=== PATIENT | female | born 1945 | race Caucasian/White ===

== ENCOUNTER 2018-12-15 17:08 | Emergency (ER) | payer MEDICARE ==
[~2018-12-15] VITALS: Ht 160 cm; Wt 90.7 kg
--- NOTE | 2018-12-15 17:26 | PHYS DOC ---
Past Medical History Attending Signature I have participated in the care of this patient and I have reviewed and agree with all pertinent clinical information above including history, exam, and recommendations. (TARSHA SANTACRUZ MD) Adult General Chief Complaint Chief Complaint: SEIZURE HPI HPI Patient is a 73 year old female that presents after she had a full body seizure that was witnessed that occurred for about 2 minutes at 444. The patient has a history of seizures and had her first seizure 5 years ago. The patient was on Lamictal but was taken off 6 months ago. The patient was initially postictal and combative afterwards. EMS stated that her blood sugar was 66 when they arrived. She was in the car when this happened. The only thing she had to eat today was an Indonesian muffin around 11:00. The patient will arrival to the ER has improved however she is still a and O 2. And she does not know what year it is. She denies any pain at this time states her pain is 0 out of 10 in severity. (TERESA LUNDY APRN) Review of Systems Review of Systems Constitutional: Denies fever or chills [] Eyes: Denies change in visual acuity, redness, or eye pain [] HENT: Denies nasal congestion or sore throat [] Respiratory: Denies cough or shortness of breath [] Cardiovascular: No additional information not addressed in HPI [] GI: Denies abdominal pain, nausea, vomiting, bloody stools or diarrhea [] : Denies dysuria or hematuria [] Musculoskeletal: Denies back pain or joint pain [] Integument: Denies rash or skin lesions [] Neurologic: Denies headache, focal weakness or sensory changes [] Endocrine: Denies polyuria or polydipsia [] Complete systems were reviewed and found to be within normal limits, except as documented in this note. (TERESA LUNDY APRN) Current Medications Current Medications Current Medications Medications (Trade) Dose Ordered Sig/Thony Start Time Stop Time Status Last Admin Dose Admin Lamotrigine (LaMICtal) 100 mg 1X STAT 12/15/18 17:43 12/15/18 18:11 DC 12/15/18 18:19 100 MG (TARSHA SANTACRUZ MD) Allergies Allergies Allergies Coded Allergies Type Severity Reaction Last Updated Verified No Known Drug Allergies 12/15/18 No (TARSHA SANTACRUZ MD) Physical Exam Physical Exam Constitutional: Well developed, well nourished, no acute distress, non-toxic appearance. [] HENT: Normocephalic, atraumatic, bilateral external ears normal, oropharynx moist, no oral exudates, nose normal. [] Eyes: PERRLA, EOMI, conjunctiva normal, no discharge. [] Neck: Normal range of motion, no tenderness, supple, no stridor. [] Cardiovascular:Heart rate regular rhythm, no murmur [] Lungs & Thorax: Bilateral breath sounds clear to auscultation [] Abdomen: Bowel sounds normal, soft, no tenderness, no masses, no pulsatile masses. [] Skin: Warm, dry, no erythema, no rash. [] Back: No tenderness, no CVA tenderness. [] Extremities: No tenderness, no cyanosis, no clubbing, ROM intact, no edema. [] Neurologic: Alert and oriented X 2, normal motor function, normal sensory function, no focal deficits noted. [] Psychologic: Affect normal, judgement normal, mood normal. [] (TERESA LUNDY APRN) Current Patient Data Vital Signs Vital Signs Date Time Temp Pulse Resp B/P (MAP) Pulse Ox O2 Delivery O2 Flow Rate FiO2 12/15/18 22:18 68 19 98 12/15/18 17:12 98.1 190/95 (126) Room Air 98.1 (TARSHA SANTACRUZ MD) Lab Values Laboratory Tests Test 12/15/18 17:22 White Blood Count 11.5 x10^3/uL (4.0-11.0) H Red Blood Count 4.96 x10^6/uL (3.50-5.40) Hemoglobin 15.1 g/dL (12.0-15.5) Hematocrit 45.2 % (36.0-47.0) Mean Corpuscular Volume 91 fL (79-100) Mean Corpuscular Hemoglobin 31 pg (25-35) Mean Corpuscular Hemoglobin Concent 34 g/dL (31-37) Red Cell Distribution Width 13.6 % (11.5-14.5) Platelet Count 395 x10^3/uL (140-400) Neutrophils (%) (Auto) 35 % (31-73) Lymphocytes (%) (Auto) 52 % (24-48) H Monocytes (%) (Auto) 8 % (0-9) Eosinophils (%) (Auto) 5 % (0-3) H Basophils (%) (Auto) 1 % (0-3) Neutrophils # (Auto) 4.0 x10^3/uL (1.8-7.7) Lymphocytes # (Auto) 5.9 x10^3/uL (1.0-4.8) H Monocytes # (Auto) 0.9 x10^3/uL (0.0-1.1) Eosinophils # (Auto) 0.6 x10^3/uL (0.0-0.7) Basophils # (Auto) 0.1 x10^3/uL (0.0-0.2) Prothrombin Time 13.2 SEC (11.7-14.0) Prothrombin Time INR 1.0 (0.8-1.1) Activated Partial Thromboplast Time 24 SEC (24-38) Sodium Level 146 mmol/L (136-145) H Potassium Level 3.4 mmol/L (3.5-5.1) L Chloride Level 106 mmol/L (98-107) Carbon Dioxide Level 21 mmol/L (21-32) Anion Gap 19 (6-14) H Blood Urea Nitrogen 27 mg/dL (7-20) H Creatinine 1.1 mg/dL (0.6-1.0) H Estimated GFR (Cockcroft-Gault) 48.7 BUN/Creatinine Ratio 25 (6-20) H Glucose Level 87 mg/dL (70-99) Lactic Acid Level 7.0 mmol/L (0.4-2.0) *H Calcium Level 9.1 mg/dL (8.5-10.1) Total Bilirubin 0.7 mg/dL (0.2-1.0) Aspartate Amino Transferase (AST) 21 U/L (15-37) Alanine Aminotransferase (ALT) 20 U/L (14-59) Alkaline Phosphatase 93 U/L (46-116) Total Protein 7.2 g/dL (6.4-8.2) Albumin 3.9 g/dL (3.4-5.0) Albumin/Globulin Ratio 1.2 (1.0-1.7) Laboratory Tests 12/15/18 17:22 Laboratory Tests 12/15/18 17:22 (TARSHA SANTACRUZ MD) Lab Values Laboratory Tests Test 12/15/18 17:22 White Blood Count 11.5 x10^3/uL (4.0-11.0) H Red Blood Count 4.96 x10^6/uL (3.50-5.40) Hemoglobin 15.1 g/dL (12.0-15.5) Hematocrit 45.2 % (36.0-47.0) Mean Corpuscular Volume 91 fL (79-100) Mean Corpuscular Hemoglobin 31 pg (25-35) Mean Corpuscular Hemoglobin Concent 34 g/dL (31-37) Red Cell Distribution Width 13.6 % (11.5-14.5) Platelet Count 395 x10^3/uL (140-400) Neutrophils (%) (Auto) 35 % (31-73) Lymphocytes (%) (Auto) 52 % (24-48) H Monocytes (%) (Auto) 8 % (0-9) Eosinophils (%) (Auto) 5 % (0-3) H Basophils (%) (Auto) 1 % (0-3) Neutrophils # (Auto) 4.0 x10^3/uL (1.8-7.7) Lymphocytes # (Auto) 5.9 x10^3/uL (1.0-4.8) H Monocytes # (Auto) 0.9 x10^3/uL (0.0-1.1) Eosinophils # (Auto) 0.6 x10^3/uL (0.0-0.7) Basophils # (Auto) 0.1 x10^3/uL (0.0-0.2) Prothrombin Time 13.2 SEC (11.7-14.0) Prothrombin Time INR 1.0 (0.8-1.1) Activated Partial Thromboplast Time 24 SEC (24-38) Sodium Level 146 mmol/L (136-145) H Potassium Level 3.4 mmol/L (3.5-5.1) L Chloride Level 106 mmol/L (98-107) Carbon Dioxide Level 21 mmol/L (21-32) Anion Gap 19 (6-14) H Blood Urea Nitrogen 27 mg/dL (7-20) H Creatinine 1.1 mg/dL (0.6-1.0) H Estimated GFR (Cockcroft-Gault) 48.7 BUN/Creatinine Ratio 25 (6-20) H Glucose Level 87 mg/dL (70-99) Lactic Acid Level 7.0 mmol/L (0.4-2.0) *H Calcium Level 9.1 mg/dL (8.5-10.1) Total Bilirubin 0.7 mg/dL (0.2-1.0) Aspartate Amino Transferase (AST) 21 U/L (15-37) Alanine Aminotransferase (ALT) 20 U/L (14-59) Alkaline Phosphatase 93 U/L (46-116) Total Protein 7.2 g/dL (6.4-8.2) Albumin 3.9 g/dL (3.4-5.0) Albumin/Globulin Ratio 1.2 (1.0-1.7) Laboratory Tests 12/15/18 17:22 Laboratory Tests 12/15/18 17:22 (TERESA LUNDY APRN) EKG EKG EKG interpreted by Dr. Esa eason with rate of 84, leftward axis, NO STEMI. (TERESA LUNDY APRN) Radiology/Procedures Radiology/Procedures [][facility] [address] [place] [address] IMAGING REPORT Signed PATIENT: STEPHENIE AGUILAR ACCOUNT: [id number] : 1945 LOCATION: ER AGE: 73 SEX: F EXAM STATUS: PRE ER ORD. PHYSICIAN: TERESA LUNDY APRN REASON: seizure, loc, ams PROCEDURE: CT HEAD WO CONTRAST EXAM: Head CT without contrast. HISTORY: Seizure. TECHNIQUE: Computed tomographic images of the head were obtained without contrast. *One or more of the following individualized dose reduction techniques were utilized for this examination: 1. Automated exposure control. 2. Adjustment of the mA and/or kV according to patient size. 3. Use of iterative reconstruction technique. COMPARISON: None. FINDINGS: There is no acute or subacute extra-axial or intraparenchymal hemorrhage. There is no mass effect or midline shift. There is no hydrocephalus. There are areas of decreased attenuation within the cerebral white matter, nonspecific and likely related to chronic small vessel disease. The visualized portions of the orbits, paranasal sinuses and mastoid air cells are unremarkable. No suspicious calvarial lesion is seen. IMPRESSION: No acute intracranial finding. Note is made that MRI is more sensitive for acute infarction. Electronically signed by: Derik Han MD (12/15/2018 5:59 PM) [facility] DICTATED and SIGNED BY: DERIK HAN MD DATE: 12/15/181758 (TREESA LUNDY APRN) Course & Med Decision Making Course & Med Decision Making Pertinent Labs and Imaging studies reviewed. (See chart for details) Will get labs, CT head and allow patient to return to baseline. Will also get EKG. Labs and imaging are unremarkable with exception of lactic acid of 7.0 which correlates with story of seizure. 1925: Check on patient and patient has improved slightly but is still having difficulty with date and is still having short term memory loss. 2158: Patient has continued to improve and knows the date will d/c home. (TERESA LUNDY APRN) Dragon Disclaimer Dragon Disclaimer This electronic medical record was generated, in whole or in part, using a voice recognition dictation system. (TERESA LUNDY APRN) Departure Departure Impression: Primary Impression: Seizure Disposition: HOME, SELF-CARE Condition: STABLE Patient Instructions: Seizure, Adult Additional Instructions: Thank you for visiting [facility]. We appreciate you trusting us with your care. If any additional problems come up don't hesitate to return to visit us. Please follow up with your primary care provider so they can plan additional care if needed and know about the problem that you had. If symptoms worsen come back to the Emergency Department. Any concerning symptoms that start such as chest pain, shortness of air, weakness or numbness on one side of the body, running high fevers or any other concerning symptoms return to the ER. Please return if you have any other issues. Please call your neurologist first thing Monday morning. Scripts Lamotrigine (LAMICTAL) 100 Mg Tablet 1 TAB PO BID for 30 Days, #60 TAB 0 Refills Prov: TERESA LUNDY APRN 12/15/18 TERESA LUNDY APRN Dec 15, 2018 17:26 TARSHA SANTACRUZ MD Dec 20, 2018 18:22
[2018-12-15 17:36] LABS: BASO # 0.1 x10^3/uL (0.0-0.2); BASO % 1 % (0-3); EOS # 0.6 x10^3/uL (0.0-0.7); EOS % 5 % (0-3); HEMATOCRIT 45.2 % (36.0-47.0); HEMOGLOBIN 15.1 g/dL (12.0-15.5); LYMPH # 5.9 x10^3/uL (1.0-4.8); LYMPH % 52 % (24-48); MEAN CORPUSCULAR HEMOGLOBIN 31 pg (25-35); MEAN CORPUSCULAR HGB CONC 34 g/dL (31-37); MEAN CORPUSCULAR VOLUME 91 fL (79-100); MONO # 0.9 x10^3/uL (0.0-1.1); MONO % 8 % (0-9); NEUT % 35 % (31-73); PLATELET COUNT 395 x10^3/uL (140-400); RED BLOOD COUNT 4.96 x10^6/uL (3.50-5.40); RED CELL DISTRIBUTION WIDTH 13.6 % (11.5-14.5); WHITE BLOOD COUNT 11.5 x10^3/uL (4.0-11.0)
[2018-12-15] MEDS ORDERED: lamoTRIgine 100 MG TABLET. PO STA (17:43)
[2018-12-15 17:46] LABS: CALCIUM 9.1 mg/dL (8.5-10.1); CREATININE 1.1 mg/dL (0.6-1.0); GFR 48.7; POTASSIUM 3.4 mmol/L (3.5-5.1); PROTHROMBIN TIME PATIENT 13.2 SEC (11.7-14.0)
[2018-12-15 17:51] LABS: ALBUMIN 3.9 g/dL (3.4-5.0); ALBUMIN/GLOBULIN RATIO 1.2 (1.0-1.7); TOTAL BILIRUBIN 0.7 mg/dL (0.2-1.0); TOTAL PROTEIN 7.2 g/dL (6.4-8.2)
--- NOTE | 2018-12-15 18:02 | RAD ---
EXAM: Head CT without contrast. HISTORY: Seizure. TECHNIQUE: Computed tomographic images of the head were obtained without contrast. *One or more of the following individualized dose reduction techniques were utilized for this examination: 1. Automated exposure control. 2. Adjustment of the mA and/or kV according to patient size. 3. Use of iterative reconstruction technique. COMPARISON: None. FINDINGS: There is no acute or subacute extra-axial or intraparenchymal hemorrhage. There is no mass effect or midline shift. There is no hydrocephalus. There are areas of decreased attenuation within the cerebral white matter, nonspecific and likely related to chronic small vessel disease. The visualized portions of the orbits, paranasal sinuses and mastoid air cells are unremarkable. No suspicious calvarial lesion is seen. IMPRESSION: No acute intracranial finding. Note is made that MRI is more sensitive for acute infarction. Electronically signed by: Danica Vieira MD (12/15/2018 5:59 PM) [facility]
[2018-12-15 22:18] VITALS: BP 180/78
[2018-12-15] MEDS ORDERED: LAMO100T5 PO (22:20)
--- NOTE | 2018-12-16 13:58 | EKG ---
[facility] [address] [place] [address] Test Date: 2018-12-15 Test Time: 17:35:38 Pat Name: STEPHENIE AGUILAR Department: Room: Gender: F [employer]: : 1945 Requested By: TERESA LUNDY Order Number: [id number] Reading MD: Measurements Intervals [place] Rate: 84 P: 0 IN: 140 QRS: 0 QRSD: 96 T: 51 QT: 378 QTc: 450 Interpretive Statements SINUS RHYTHM LEFTWARD AXIS QRS(T) CONTOUR ABNORMALITY CONSIDER INFERIOR MYOCARDIAL DAMAGE POSSIBLY ABNORMAL ECG No previous ECG available for comparison
== END 2018-12-15 22:28 | disposition home or self-care (01) ==
LOC: ER 17:08
DX: R56.9 Unspecified convulsions (principal); R51 Headache
CPT/HCPCS: 36415; 70450; 80053; 83605; 85025; 85610; 85730; 93005; 99285-25